=== PATIENT | female | born 1995 | race Asian ===

== ENCOUNTER 2022-01-30 13:57 | Emergency (ER) | payer MEDICAID ==
[~2022-01-30] VITALS: Ht 160 cm; Wt 77.1 kg
[2022-01-30 14:04] VITALS: BP_SYST 112
[2022-01-30] MEDS ORDERED: ACETAMINOPHEN 325 MG TABLET PO ONE (14:45)
--- NOTE | 2022-01-30 14:45 | NUR ---
PT BIB SELF WITH C/O RECTAL PAIN WHEN ATTEMPTING BM, OCCURED 2 HOURS AGO, PAIN IS 10/10. PT BROUGHT TO ROOM 7 AND ENDORSED TO [address].
--- NOTE | 2022-01-30 15:00 | NUR ---
PT WAS MEDICATED WITH TYLENOL. PO
--- NOTE | 2022-01-30 15:24 | NUR ---
MARIO IN ROOM TO [employer] DR MULTANI
[2022-01-30] MEDS ORDERED: POLY17PO4 PO (15:30)
[2022-01-30] MEDS ORDERED: ANURH RC (15:30)
[2022-01-30 15:45] VITALS: BP_SYST 134
--- NOTE | 2022-01-30 15:46 | NUR ---
Patient given written and verbal discharge instructions and verbalizes understanding. ER MD discussed with patient the results and treatment provided. Patient in stable condition. ID arm band removed. IV catheter removed intact and dressing applied, no active bleeding. Rx of PREDNISOLONE given. Patient educated on pain management and to follow up with PMD. Pain Scale 0. Opportunity for questions provided and answered. Medication side effect fact sheet provided.
== END 2022-01-30 15:46 | disposition home or self-care (01) ==
LOC: SED 13:57
DX: K64.4 Residual hemorrhoidal skin tags (principal); K62.89 Other specified diseases of anus and rectum; R10.30 Lower abdominal pain, unspecified; Z79.899 Other long term (current) drug therapy
CPT/HCPCS: 81025; 99283

== ENCOUNTER 2022-05-10 13:55 | Emergency (ER) | payer MEDICAID ==
[~2022-05-10] VITALS: Ht 160 cm; Wt 78.5 kg
[~2022-05-10 13:55] MED LIST: ANURH RC; POLY17PO4 PO
[2022-05-10 14:08] VITALS: BP_SYST 119
--- NOTE | 2022-05-10 14:08 | NUR ---
Patient triaged and placed in waiting room. VSS and patient appears in no acute distress at this time. Accompanied by SELF, awaiting available bed, and MD notified of need for MSE.
[2022-05-10 14:13] LABS: BILIRUBIN,URINE NEGATIVE (NEGATIVE); BLOOD, URINE 1+ (NEGATIVE); COLOR,URINE YELLOW (YELLOW); GLUCOSE,URINE NEGATIVE (NEGATIVE); KETONES,URINE TRACE (NEGATIVE); NITRITE, URINE NEGATIVE (NEGATIVE); PROTEIN URINE 1+ (NEGATIVE)
[2022-05-10 14:27] LABS: CLARITY/URINE HAZY (CLEAR); LEUKOCYTE ESTERASE ,URINE 3+ (NEGATIVE)
[2022-05-10 14:28] LABS: BACTERIA,URINE FEW /HPF (None Seen); MUCUS,URINE None Seen /LPF (None Seen); RBC,URINE 0-3 /HPF (0-3); WBC,URINE 50-80 /HPF (0-3)
--- NOTE | 2022-05-10 14:32 | NUR ---
ER DR. STEINER EXAMINING PT IN TRIAGE
[2022-05-10] MEDS ORDERED: NITR-85 PO (14:39)
[2022-05-10 14:50] VITALS: BP_SYST 121
--- NOTE | 2022-05-10 14:50 | NUR ---
Patient given written and verbal discharge instructions and verbalizes understanding. ER MD discussed with patient the results and treatment provided. Patient in stable condition. ID arm band removed. Rx of MACROBID given. Patient educated on pain management and to follow up with PMD. Pain Scale 0/10. Opportunity for questions provided and answered. Medication side effect fact sheet provided.
== END 2022-05-10 14:50 | disposition home or self-care (01) ==
LOC: SED 13:55
DX: N39.0 Urinary tract infection, site not specified (principal); R30.0 Dysuria; Z79.899 Other long term (current) drug therapy
CPT/HCPCS: 81000; 87086; 99283